=== PATIENT | female | born 1930 | race Caucasian/White ===

== ENCOUNTER 2018-09-05 09:45 | Observation (INO) | payer OTHER ==
[~2018-09-05] VITALS: Ht 162.6 cm; Wt 55.3 kg
[2018-09-05 09:48] VITALS: BP 168/82
[2018-09-05] MEDS ORDERED: ASPIRIN81 M2 PO (10:18)
[2018-09-05] MEDS ORDERED: CLONIDINE0.1 PO (10:18)
[2018-09-05] MEDS ORDERED: TRAMADOL 50 MG50 MG PO (10:19)
[2018-09-05] MEDS ORDERED: CARVEDILOL3.125 MG PO (10:19)
[2018-09-05] MEDS ORDERED: WELLBUTRIN XL300 MG PO (10:19)
[2018-09-05] MEDS ORDERED: MICARDIS 80 MG80 MG PO (10:19)
[2018-09-05] MEDS ORDERED: ATIVAN0.5 MG PO (10:21)
[2018-09-05] MEDS ORDERED: SERTRALINE HCL50 MG PO (10:22)
[2018-09-05] MEDS ORDERED: TYLENOL EXTRA500 MG PO (10:22)
[2018-09-05] MEDS ORDERED: PROMS25 WY RECTAL (10:22)
[2018-09-05] MEDS ORDERED: CALCIUM 500 +1 EAC5 PO (10:23)
[2018-09-05] MEDS ORDERED: VOLTAREN GEL 1100 G2 TOP (10:23)
[2018-09-05] MEDS ORDERED: ZANTAC 150MG T150 MG PO (10:23)
[2018-09-05] MEDS ORDERED: ACIDOPHILUS1 EAC4 PO (10:24)
[2018-09-05] MEDS ORDERED: UNICOMPLEX M TA1 TA1 PO (10:24)
[2018-09-05 11:49] LABS: ABSOLUTE BASOPHILS 0.1 thou/uL (0.0-0.2); ABSOLUTE EOSINOPHILS 0.1 thou/uL (0.0-0.7); ABSOLUTE LYMPHOCYTES 1.2 thou/uL (0.8-5.3); ABSOLUTE MONOCYTES 0.6 thou/uL (0.0-1.2); ABSOLUTE NEUTROPHILS 4.7 thou/uL (1.6-8.1); BASOPHILS 1.1 %; EOSINOPHILS 0.8 %; HEMATOCRIT 37.1 % (37.0-47.0); HEMOGLOBIN 12.2 gm/dL (12.0-15.0); LYMPHOCYTES 18.4 %; MCH 28.2 pg (26.0-34.0); MCHC 32.9 g/dL (28.0-37.0); MCV 85.7 fL (80.0-100.0); MPV 8.8 fl. (7.2-11.1); NUCLEATED RBCS 0 /100WBC; PLATELET COUNT* 251 thou/uL (150-400); POLYS 70.7 %; RBC 4.33 mil/uL (4.20-5.00); RDW-CV 14.1 % (10.5-14.5); WBC 6.6 thou/uL (4.0-11.0)
[2018-09-05 12:27] LABS: CALCIUM 9.3 mg/dL (8.5-10.1); CREATININE 1.5 mg/dL (0.6-1.3); POTASSIUM 4.2 mmol/L (3.5-5.1); TOTAL BILIRUBIN 0.5 mg/dL (<0.1-1.0); TOTAL PROTEIN 8.6 g/dL (6.4-8.2)
[2018-09-05 16:15] VITALS: BP 138/79
[2018-09-05 20:05] VITALS: BP 147/69
[2018-09-05 20:12] LABS: URINE BILIRUBIN NEGATIVE (Negative); URINE BLOOD NEGATIVE (Negative); URINE CLARITY CLEAR; URINE COLOR YELLOW; URINE GLUCOSE-RANDOM NEGATIVE (Negative); URINE KETONES NEGATIVE (Negative); URINE LEUKOCYTES-REFLEX NEGATIVE (Negative); URINE NITRITE-REFLEX NEGATIVE (Negative); URINE PROTEIN NEGATIVE (Negative); URINE UROBILINOGEN 0.2 E.U./dl (0.2-1.0)
--- NOTE | 2018-09-06 04:14 | NUR ---
ASSUMED CARE OF PT FROM ED ,UPON ARRRIVAL TO UNIT , ASSESSMENT COMPLETED AND DATA BASE OBTAINED WITH ASSIST OF DAUGHTER. PT C/O RIGHT SHOULDER PAIN WITH MOVEMENT, DISCUSSED PLAN OF CARE PT AGREEABLE . FIRST PT REFUSED HS MEDICATION THEN LATER I WAS ABLE TO TALK PT INTO TALKING MEDICATION. PT CONFUSED AT TIME , ALERT TO SELF AND PLACE AND SITUATION. BED ALARM ON FOR SAFETY. PT VOIDING PER BEDPAN. WILL CONITNUE WITH CURRENT PLAN OF CARE.
[2018-09-06 04:47] LABS: HEMATOCRIT 32.3 % (37.0-47.0); HEMOGLOBIN 10.4 gm/dL (12.0-15.0); MCH 27.8 pg (26.0-34.0); MCHC 32.3 g/dL (28.0-37.0); MCV 86.1 fL (80.0-100.0); MPV 9.4 fl. (7.2-11.1); RBC 3.75 mil/uL (4.20-5.00); RDW-CV 14.6 % (10.5-14.5); WBC 4.6 thou/uL (4.0-11.0)
[2018-09-06 04:57] LABS: CALCIUM 8.8 mg/dL (8.5-10.1); CREATININE 1.5 mg/dL (0.6-1.3); MAGNESIUM 1.8 mg/dL (1.8-2.4); POTASSIUM 5.1 mmol/L (3.5-5.1)
[2018-09-06 08:00] VITALS: BP 123/65
[2018-09-06] MEDS ORDERED: LIDOPATCH1 EACH TOP (09:43)
[2018-09-06] MEDS ORDERED: HYDROCODON-ACE1 EAC7 PO (09:43)
[2018-09-06] MEDS ORDERED: TRAMADOL 50 MG50 MG PO (09:43)
[2018-09-06 14:07] VITALS: BP 123/65
[2018-09-06 15:22] VITALS: BP 123/65
--- NOTE | 2018-09-06 15:30 | NUR ---
PT.TEARFUL THIS AM BEFORE HER DAUGHTER,JOHANNE, GOT HERE. SHE WAS AFRAID EVERYONE WAS MAD AT HER. TOLD PT.NO ONE WAS MAD AT HER. SHE SAID SHE HAS LIVED AT ASSISTED LIVING AT [facility] FOR ABOUT 6 MONTHS AND ITS OK BUT SHE JUST DOESN'T FEEL AT HOME. PT.HAS DISCHARGE ORDERS. DAUGHTER CAME AND WANTS PT.TO GO TO SNF. SPOKE WITH THERAPY. PT.DID WELL. BOSS DYER SAID PT.DRESSED HERSELF WITHOUT ANY ASSIST. FAXED [facility], [place] DISCHARGE SUMMARY, MRI RESULTS, MED ORDERS,PT ASSESSMENT TO REVIEW. SHE CALLED CM BACK AND SAID SHE HAD SPOKEN WITH DAUGHTER AND THEY WILL ATTEMPT TO GET SNF AUTH. EXPLAINED PT.WAS OBSERVATION AND HAS DISCHARGE ORDERS. SPOKE WITH DAUGHTER AND EXPLAINED THE SAME. CM DISCUSSED WITH . SHE FELT PT.WAS DOING WELL ENOUGH TO GO BACK TO [facility] WITH HOME HEALTH PT/OT. FAXED ORDER,MED LIST TO [facility]. HAD TO LEAVE HER A VM. DAUGHTER WILL TRANSPORT PT.BACK TO [facility]. [facility]RI SAID FREDA IF PT.DID NOT DO WELL AT [facility], SHE COULD PAY PRIVATELY FOR SNF UNTIL AUTH OBTAINED. INFORMED DAUGHTER OF THIS ALSO.
--- NOTE | 2018-09-06 17:12 | NUR ---
PT ALERT TO SELF ONLY-CONFUSED. PT REFUSED TO TAKE ANY OF HER MORNING MEDICATIONS STATING,"I'M NOT TAKING THEM, I WANT TO GO HOME." PT TEARY AND DIDN'T UNDERSTAND WHY SHE COULDN'T GO HOME. PT GOT SELF DRESSED AND WAS UP IN ROOM AMBULATING. PHYSICIAN AWARE AND CANCELLED PROCEDURE. INDICATED HAVING MID BACK PAIN. PT AGREEABLE WITH TAKING MEDICATION ONCE DAUGHTER ARRIVED ON UNIT. PT TOOK TRAMADOL AND HYDROCODONE FOR PAIN. WORKED WITH PT/OT DURING DAY. DAUGHTER, JOCELYNN WHITING, WAS GIVEN DISCHARGE INSTRUCTIONS AND PRESCRIPTIONS. IV REMOVED. PT LEFT WITH BELONGINGS BY WHEELCHAIR TO LEAVE @ 1615 BY WHEEL CHAIR TO LEAVE BY PRIVATE CAR.
[2018-09-06 17:19] VITALS: BP 123/65
== END 2018-09-06 16:15 ==
LOC: M.ERS 09:45 → M.ORTHSURG 11:28 → M.TBA-ER 11:28 → M.ORTHSURG 20:10
PROVIDERS: Emergency Medicine; ADMIT Internal Medicine
DX: M54.9 Dorsalgia, unspecified (principal); M54.2 Cervicalgia; R10.9 Unspecified abdominal pain; I12.9 Hypertensive chronic kidney disease with stage 1 through stage 4 chronic kidney disease, or unspecified chronic kidney disease; N18.3 Chronic kidney disease, stage 3 (moderate); G30.1 Alzheimer's disease with late onset; F02.80 Dementia in other diseases classified elsewhere, unspecified severity, without behavioral disturbance, psychotic disturbance, mood disturbance, and anxiety; F41.9 Anxiety disorder, unspecified; F32.9 Major depressive disorder, single episode, unspecified; M19.90 Unspecified osteoarthritis, unspecified site; K21.9 Gastro-esophageal reflux disease without esophagitis; E03.9 Hypothyroidism, unspecified; M81.0 Age-related osteoporosis without current pathological fracture; Z88.1 Allergy status to other antibiotic agents; Z88.8 Allergy status to other drugs, medicaments and biological substances

== ENCOUNTER → 2020-03-18 | Outpatient (CLI) | payer MEDICARE ==
[~2020-03-18] MED LIST: ACIDOPHILUS1 EAC4 PO; ASPIRIN81 M2 PO; ATIVAN0.5 MG PO; CALCIUM 500 +1 EAC5 PO; CARVEDILOL3.125 MG PO; CLONIDINE0.1 PO; HYDROCODON-ACE1 EAC7 PO; LIDOPATCH1 EACH TOP; MICARDIS 80 MG80 MG PO; PROMS25 WY RECTAL; SERTRALINE HCL50 MG PO; TRAMADOL 50 MG50 MG PO; TYLENOL EXTRA500 MG PO; UNICOMPLEX M TA1 TA1 PO; VOLTAREN GEL 1100 G2 TOP; WELLBUTRIN XL300 MG PO; ZANTAC 150MG T150 MG PO
== END ==
LOC: M.RAD 11:21
PROVIDERS: ATTEND Family Medicine
DX: Z12.31 Encounter for screening mammogram for malignant neoplasm of breast (principal)